=== PATIENT | female | born 2000 | race African-American/Black ===

== ENCOUNTER 2022-03-28 14:10 | Emergency (ER) | payer OTHER, SELFPAY ==
[2022-03-28 14:33] VITALS: BP 124/60; PULSE 75; RESP 16; TEMP 36.1; O2SAT 100
--- NOTE | 2022-03-28 15:15 | ED.WOUNDLAC ---
HPI - Wound/Laceration General Chief Complaint: Wound/Laceration Stated Complaint: left hand laceration with primer boxer Time Seen by Provider: 03/28/22 14:38 History of Present Illness HPI narrative: 21-year-old female presents emergency room with laceration to her left hand. Patient states that she was trying to break down boxes with a primer boxer, when the primer boxer slipped and the left side of her palm. Related Data Allergies Allergy/AdvReac Type Severity Reaction Status Date / Time No Known Allergies Allergy Verified 03/28/22 15:26 Review of Systems Review of Systems: CONSTITUTIONAL: Denies fever, chills, or sweats. EYES: Denies visual changes, redness, or discharge. ENT: Denies rhinorrhea, congestion, sore throat, or otalgia. CARDIOVASCULAR: Denies chest pain, palpitations, or edema. RESPIRATORY: Denies cough or dyspnea. GASTROINTESTINAL: Denies abdominal pain, nausea, vomiting, or diarrhea. GENITOURINARY: Denies dysuria or hematuria. SKIN: Laceration to the left hand MUSCULOSKELETAL: Denies back pain, joint pain, or myalgia. NEUROLOGIC: Denies headache, numbness, dizziness, or weakness. PSYCHIATRIC: Denies anxiety or depression. Exam Narrative: GENERAL: Well-appearing, well-nourished, and in no acute distress. HEAD: Normocephalic, atraumatic. EYES: PERRLA and EOMI. CHEST: Clear to auscultation. No respiratory distress. No wheezes rales or rhonchi HEART: Regular rate and rhythm. No murmur heard. Normal peripheral pulses. ABDOMEN: Soft, nontender, nondistended, normal active bowel sounds. EXTREMITIES: Normal range of motion. No edema. SKIN: 2 cm linear laceration to the base of the palmar side of the left thumb NEURO: No focal deficits. Alert and oriented x3. PSYCH: Normal mood and affect. Course Vital Signs Vital signs: Vital Signs Temperature 36.1 C L 03/28/22 14:33 Pulse Rate 75 03/28/22 14:33 Respiratory Rate 16 03/28/22 14:33 Blood Pressure 124/60 03/28/22 14:33 Pulse Oximetry 100 03/28/22 14:33 Temperature 36.1 C L 03/28/22 14:33 Pulse Rate 75 03/28/22 14:33 Respiratory Rate 16 03/28/22 14:33 Blood Pressure 124/60 03/28/22 14:33 Pulse Oximetry 100 03/28/22 14:33 Procedures Laceration Laceration 1: Date: 03/28/22 Time: 15:49 Site: hand Side (If applicable): left Size (cm): 2 Description: linear Depth: simple, single layer Local Anesthetic: lidocaine 1% Amount of anesthesia used (mL): 3 Pre-repair: irrigated ====== Skin Level ====== Skin layer closed with: nylon Size (cm): 5-0 Number of sutures: 4 Technique: simple, interrupted ====== Subcutaneous Layer ====== ====== Muscle Layer ====== ====== Tendon Layer ====== Discharge Plan Discharge Clinical Impression: Laceration Patient Disposition: Home, Self-Care Condition: Stable Instructions: Antibiotic Form, Laceration (ED) Additional Instructions: Sutures come out in 10 days. Monitor wound for signs of infection which include: Redness, swelling, increased pain, decreased mobility, and purulent drainage. You can take Tylenol or ibuprofen as needed for pain. Keep wound covered Follow-up/Referrals: Matthew,PRECIOUS Alvarez [Primary Care Provider] - Time of Disposition: 15:52
--- NOTE | 2022-03-28 15:44 | PC.NURSE ---
Provider at bedside to suture hand laceration.
[2022-03-28] MEDS: LIDOCAINE HCL 1% PF 30 ML VIAL (16:00)
[2022-03-28] MEDS: TETANUS,DIPHTHERIA,AC PERTUSSIS ADULT (0.5 ML) BOOSTRIX IM (16:01)
== END 2022-03-28 16:30 | disposition home or self-care (01) ==
PROVIDERS: Emergency Provider Nurse Practitioner Family; PCP Physician Assistant
DX: S61.412A Laceration without foreign body of left hand, initial encounter (principal); Z23 Encounter for immunization; W27.0XXA Contact with workbench tool, initial encounter
CPT/HCPCS: 12001; 90471; 90715; 99282

== ENCOUNTER 2024-09-21 17:07 | Emergency (ER) | payer SELFPAY ==
[2024-09-21 17:17] VITALS: BP 159/100; PULSE 104; RESP 18; TEMP 36.1; O2SAT 100
--- NOTE | 2024-09-21 18:53 | PC.NURSE ---
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 Pt states leaving at this time.
== END 2024-09-21 19:14 | disposition left against medical advice (07) ==
PROVIDERS: PCP Physician Assistant
DX: J02.9 Acute pharyngitis, unspecified (principal)
CPT/HCPCS: 99199

== ENCOUNTER 2025-04-16 09:30 | Outpatient (RCR) | payer OTHER, MEDICAID, SELFPAY ==
[2025-02-12 09:22] VITALS: BMI 45.8
[2025-02-12 09:30] VITALS: BMI 45.8
[2025-03-05 09:30] VITALS: BMI 45.8
[2025-04-16 09:30] VITALS: BMI 45.8
== END 2025-04-20 09:04 | disposition home or self-care (01) ==
LOC: ANHDMC 09:30
PROVIDERS: PCP Nurse Practitioner Adult Health; Visit Provider Nurse Practitioner Adult Health
DX: E11.9 Type 2 diabetes mellitus without complications (principal); Z71.89 Other specified counseling
CPT/HCPCS: 97802; 97803; G0108